=== PATIENT | male | born 1975 | race African-American/Black ===

== ENCOUNTER 2019-11-06 09:01 | Emergency (ER) | payer OTHER ==
[~2019-11-06] VITALS: Ht 177.8 cm; Wt 100.0 kg
[2019-11-06] MEDS ORDERED: KETOROLAC 60MG/2ML VIAL IM STA (09:18)
[2019-11-06 11:25] VITALS: BP 140/89
== END 2019-11-06 11:26 | disposition home or self-care (01) ==
LOC: ER 09:01
DX: S53.491A Other sprain of right elbow, initial encounter (principal); W18.2XXA Fall in (into) shower or empty bathtub, initial encounter; Y93.E1 Activity, personal bathing and showering; Y92.012 Bathroom of single-family (private) house as the place of occurrence of the external cause
CPT/HCPCS: 73080; 96372; 99283; J1885; A4565